=== PATIENT | female | born 2005 | race African-American/Black ===

== ENCOUNTER 2025-08-15 06:52 | Emergency (ER) | payer OTHER ==
[~2025-08-15] VITALS: Ht 172.7 cm; Wt 77.0 kg
[2025-08-15] MEDS: ALBUTEROL (0.083%) 2.5MG/3ML NEB HHN SCH ×2 (07:47→09:19)
[2025-08-15] MEDS: IPRATROPIUM BROMIDE (0.02%) 0.5MG/2.5ML NEB HHN SCH (07:47)
[2025-08-15 07:52] VITALS: PULSE 105; RESP 22; O2SAT 97
[2025-08-15 09:20] VITALS: PULSE 112; RESP 19; O2SAT 98
[2025-08-15 10:13] LABS: BASOPHILS % 0.4 % (0.0-2.0); EOSINOPHILS % 3.9 % (0.0-5.0); HEMATOCRIT. 37.2 % (36.0-48.0); HEMOGLOBIN. 12.4 g/dL (12.0-16.0); LYMPHOCYTES % 22.0 % (20.0-50.0); MEAN PLATELET VOLUME 7.3 fl (7.4-10.4); MONOCYTES % 8.1 % (2.0-8.0); NEUTROPHILS % 65.6 % (40.0-76.0); PLATELET 385 x1000/uL (130-400); RED BLOOD CELL COUNT 4.36 mill/uL (4.2-5.4); RED CELL DISTRIBUTION WIDTH 12.7 % (11.6-14.6)
[2025-08-15 10:31] LABS: CREATININE 0.7 mg/dL (0.6-1.0)
[2025-08-15 10:32] LABS: UREA NITROGEN BLOOD 5 mg/dL (9-23)
[2025-08-15 10:33] LABS: TROPONIN I HIGH SENSITIVITY < 4 ng/L (3.0-34)
[2025-08-15] MEDS: METHYLPREDNISOLONE SOD SUCC 125MG/2ML (ACT-O-VIAL) IV ONE (10:38)
[2025-08-15] MEDS: METHYLPREDNISOLONE SOD SUCC 125MG/2ML (ACT-O-VIAL) IV SCH (11:00)
[2025-08-15] MEDS: POTASSIUM CHLORIDE 20MEQ/PACKET PO ONE (11:38)
[2025-08-15 12:46] VITALS: BP 104/59; PULSE 122; RESP 20; TEMP 37.1; O2SAT 100
== END 2025-08-15 12:46 | disposition short-term general hospital (02) ==
LOC: ER 06:52 → EDBEDREQTM 11:24 → EDBEDREQ 11:24 → CANBEDREQ 12:26 → ER 12:46
DX: J45.902 Unspecified asthma with status asthmaticus (principal)
CPT/HCPCS: 80048; 85025; 85379; 84484; 36415; 71045; 93005; 98960; 94644; 96374; 99285; J2919; Z7610 ×4; 94070; 94640; 94664